=== PATIENT | male | born 1965 | race Caucasian/White ===

== ENCOUNTER 2023-03-27 10:10 | Emergency (ER) | payer BC ==
[~2023-03-27] VITALS: Ht 188 cm; Wt 82.9 kg
[2023-03-27] MEDS ORDERED: HYDROmorphone 1 mg/ml syringe IV ONE (10:35)
[2023-03-27] MEDS ORDERED: ondansetron/PF 4mg/2ml inj IV ONE (10:35)
[2023-03-27] MEDS ORDERED: piperacillin/tazo 3.375gm/50ml 50 ML IV ONE (10:35)
[2023-03-27 10:38] LABS: BILIRUBIN,URINE NEGATIVE (Neg); CLARITY,URINE SLIGHTLY CLOUDY (Clear); COLOR,URINE YELLOW (Yellow); GLUCOSE, URINE NEGATIVE (Neg); KETONES,URINE NEGATIVE (Neg); LEUKOCYTE ESTERASE ,URINE NEGATIVE (Neg); NITRITES, URINE NEGATIVE (Neg); OCCULT BLOOD,URINE NEGATIVE (Neg); PH,URINE 5.5 (4.8-8.0); PROTEIN,URINE NEGATIVE (Neg); UROBILINOGEN,URINE 0.2 E.U/dL (0.2-1.0)
[2023-03-27 10:41] LABS: UA COLLECTION TYPE CLN CATCH MIDSTREAM
[2023-03-27 10:45] LABS: CELLULAR CAST 0-4 /LPF (NEGATIVE)
[2023-03-27 10:46] LABS: SQUAMOUS EPITHELIAL CELL,UR FEW /LPF (FEW)
[2023-03-27 10:47] LABS: RBC,URINE 0-2 /HPF (0-2); WBC,URINE 0-4 /HPF (0-4)
[2023-03-27 10:48] LABS: BACTERIA,URINE FEW /HPF (Neg)
[2023-03-27 10:50] LABS: TRANSITIONAL EPI CELLS,URINE FEW /HPF
[2023-03-27 10:53] LABS: URINE AMPHETAMINE SCREEN NEGATIVE (Neg); URINE BARBITUATE SCREEN NEGATIVE (Neg); URINE BENZODIAZEPINES SCREEN NEGATIVE (Neg); URINE CANNABINOID SCREEN NEGATIVE (Neg); URINE COCAINE SCREEN NEGATIVE (Neg); URINE METHADONE SCREEN NEGATIVE (Neg); URINE OPIATE SCREEN NEGATIVE (Neg); URINE PHENCYCLIDINE SCREEN NEGATIVE (Neg)
[2023-03-27 11:28] LABS: BASOPHILS % (AUTO) 0.7 % (0-1); EOSINOPHILS # (AUTO) 0.2 X10'3 (0-0.9); EOSINOPHILS % (AUTO) 4.1 % (0-6); HEMATOCRIT 33.4 % (42.0-52.0); HEMOGLOBIN 11.2 g/dl (14.0-17.9); LYMPHOCYTES # (AUTO) 1.5 X10'3 (1.1-4.8); LYMPHOCYTES % (AUTO) 24.9 % (21-51); MEAN CORPUSCULAR HEMOGLOBIN 28.7 PG (27.0-31.0); MEAN CORPUSCULAR HGB CONC 33.5 g/dL (33.0-36.5); MEAN CORPUSCULAR VOLUME 85.9 FL (78-98); MEAN PLATELET VOLUME 8.5 FL (7.4-10.4); MONOCYTES # (AUTO) 0.6 X10'3 (0-0.9); MONOCYTES % (AUTO) 9.8 % (2-12); NEUTROPHILS # (AUTO) 3.7 X10'3 (1.8-7.7); NEUTROPHILS % (AUTO) 60.5 % (42-75); PLATELET COUNT 222 X10'3 (140-440); RED BLOOD COUNT 3.89 X10'6 (4.70-6.10); WHITE BLOOD COUNT 6.1 X10'3 (4.5-11.0)
[2023-03-27 11:35] LABS: ALANINE AMINOTRANSFERASE 17 U/L (12-78); ALBUMIN 3.3 G/DL (3.4-5.0); ALBUMIN/GLOBULIN RATIO 0.8 (1.1-1.5); ALKALINE PHOSPHATASE 126 IU/L (46-116); ANION GAP 13 (8-16); ASPARTATE AMINO TRANSFERASE 80 U/L (10-37); BILIRUBIN,TOTAL 0.4 MG/DL (0.1-1.0); BLOOD UREA NITROGEN 35 MG/DL (7-18); BUN/CREATININE RATIO 16.7 (10.0-20.0); C-REACTIVE PROTEIN 2.03 MG/DL (0.0-0.5); CALCIUM 10.3 MG/DL (8.5-10.1); CHLORIDE 104 MMOL/L (99-107); CREATININE 2.09 MG/DL (0.60-1.10); GLUCOSE 98 MG/DL (70-104); LIPASE 22 U/L (16-77); MAGNESIUM 2.1 MG/DL (1.5-2.4); POTASSIUM 4.1 MMOL/L (3.5-5.1); SODIUM 140 MMOL/L (135-145); TOTAL CARBON DIOXIDE 23.2 MMOL/L (24-32); TOTAL PROTEIN 7.5 G/DL (6.4-8.2); eCRCL 46 ML/MIN; eGFR 33 ML/MIN
[2023-03-27] MEDS ORDERED: iohexol 300mg/ml 100ml inj. ONE (12:19)
[2023-03-27] MEDS ORDERED: bisacodyl 10mg suppository rectal RC STA (14:37)
[2023-03-27] MEDS ORDERED: HYDROmorphone inj. 0.5 MG/0.5 ML DISP.SYRIN IV STA (14:37)
[2023-03-27] MEDS ORDERED: ciprofloxacin 250mg tablet PO ONE (15:10)
[2023-03-27] MEDS ORDERED: LidoCAINE 2% Topical Jelly 11mL syringe TOP ONE (15:15)
[2023-03-27 15:52] VITALS: BP 132/82; PULSE 87; RESP 18; TEMP 98.7; O2SAT 96
== END 2023-03-27 15:59 | disposition home or self-care (01) ==
LOC: ER 10:11
DX: N13.9 Obstructive and reflux uropathy, unspecified (principal)
CPT/HCPCS: 36415; 51702; 70470; 71045; 71260; 74177; 80053; 80305; 81001; 83605; 83690; 83735; 84145; 85025; 86140; 87040; 93005; 96365; 96375; 96376; 99285; A4314; J1170; J2405; J2543; J3490; Q9967; A4338; A4340; A4358; C1758